=== PATIENT | female | born 1960 | race Caucasian/White ===

== ENCOUNTER 2019-02-01 16:24 | Inpatient (IN) | payer OTHER ==
[~2019-02-01] VITALS: Ht 160 cm; Wt 101.6 kg
[2019-02-01 18:23] VITALS: BP_SYST 147
[2019-02-01] MEDS ORDERED: NACL 0.9% 1,000 ML IV ONE (19:00)
[2019-02-01] MEDS ORDERED: IBUPROFEN 600 MG TABLET PO ONE (19:00)
[2019-02-01 19:17] LABS: HEMATOCRIT 42.1 % (36-48); HEMOGLOBIN 14.3 g/dL (12.0-16.0); MEAN CORPUSCULAR HEMOGLOBIN 30 pg (27-31); MEAN CORPUSCULAR HGB CONC 34 % (32-36); MEAN CORPUSCULAR VOLUME 87 fL (79.0-98.0); PLATELET COUNT (AUTO) 224 K/uL (130-430); RED BLOOD CELL COUNT(AUTO) 4.83 MIL/uL (4.2-6.2); WHITE BLOOD COUNT (AUTO) 18.1 K/uL (4.8-10.8)
[2019-02-01 19:28] LABS: CALCIUM 8.6 mg/dL (8.4-11.0); CREATININE 0.91 mg/dL (0.55-1.30); POTASSIUM 3.3 mmol/L (3.5-5.1)
[2019-02-01 19:33] LABS: ALBUMIN 3.4 g/dL (3.4-4.8); TOTAL BILIRUBIN 1.5 mg/dL (0.0-1.0)
[2019-02-01 19:43] LABS: BAND % (MANUAL) 7 % (0-6); BASOPHILS % (MANUAL) 0 % (0-2); EOSINOPHILS % (MANUAL) 0 % (0-7); LYMPHOCYTES % (MANUAL) 16 % (20-46); MONOCYTES % (MANUAL) 4 % (0-11)
[2019-02-01] MEDS ORDERED: KETOROLAC TROMETHAMINE 30 MG VIAL IVP ONE (20:30)
[2019-02-01] MEDS ORDERED: cefTRIAXone 1 GM IVPB PREMIX 50 ML IV ONE (20:30)
[2019-02-01] MEDS ORDERED: AMPICILLIN SODIUM/SULBACTAM NA 3 GM VIAL IV ONE (20:45)
[2019-02-01 21:29] LABS: BILIRUBIN,URINE NEGATIVE (NEGATIVE); BLOOD, URINE NEGATIVE (NEGATIVE); COLOR,URINE YELLOW (YELLOW); GLUCOSE,URINE NEGATIVE (NEGATIVE); KETONES,URINE 1+ (NEGATIVE); LEUKOCYTE ESTERASE ,URINE NEGATIVE (NEGATIVE); NITRITE, URINE NEGATIVE (NEGATIVE); PH,URINE 5.5 (5.0-8.0); PROTEIN URINE NEGATIVE (NEGATIVE); UROBILINOGEN,URINE 0.2 (0.2-1.0)
[2019-02-01 21:31] LABS: CLARITY/URINE SL. HAZY (CLEAR)
[2019-02-01 22:43] VITALS: BP_SYST 104
[2019-02-01] MEDS ORDERED: ONDANSETRON HCL 4 MG/2 ML VIAL IVP PRN (23:30)
[2019-02-01] MEDS ORDERED: ZOLPIDEM TARTRATE 5 MG TABLET PO PRN (23:30)
[2019-02-01] MEDS ORDERED: HYDROcodone/ACETAMIN 5-325 MG TAB (NORCO/ VICODIN) PO PRN (23:30)
[2019-02-01] MEDS ORDERED: MORPHINE 4 MG/ML INJ. SYRINGE IVP PRN (23:30)
[2019-02-01] MEDS: NACL 0.9% 1,000 ML IV SCH (23:36)
[2019-02-01] MEDS ORDERED: VANCOMYCIN HCL 1 GM/NS PREMIX 250 ML IV SCH (23:45)
[2019-02-02] MEDS ORDERED: CEFAZOLIN 2 GM IVPB PREMIX 100 ML IV ONE (00:25)
[2019-02-02] MEDS: ceFAZolin SODIUM 2 GM in D5W 100 ML IV SCH ×5 (00:26→23:05)
[2019-02-02] MEDS ORDERED: VANCOMYCIN HCL 1000 MG/VIAL IV ONE (00:26)
[2019-02-02 00:31] VITALS: BP_SYST 103
[2019-02-02 06:04] LABS: BASOPHILS # (AUTO) 0.1 K/uL (0.0-0.2); BASOPHILS % (AUTO) 0.4 % (0.0-2.0); EOSINOPHILS # (AUTO) 0.1 K/uL (0.0-0.4); EOSINOPHILS % (AUTO) 0.7 % (0.0-4.0); HEMATOCRIT 36.3 % (36-48); HEMOGLOBIN 12.3 g/dL (12.0-16.0); LYMPHOCYTES % (AUTO) 12.9 % (20.5-51.5); MEAN CORPUSCULAR HEMOGLOBIN 30 pg (27-31); MEAN CORPUSCULAR HGB CONC 34 % (32-36); MEAN CORPUSCULAR VOLUME 88 fL (79.0-98.0); MONOCYTES # (AUTO) 1.2 K/uL (0.0-1.0); NEUTROPHILS # (AUTO) 11.9 K/uL (1.8-7.7); PLATELET COUNT (AUTO) 171 K/uL (130-430); RED BLOOD CELL COUNT(AUTO) 4.15 MIL/uL (4.2-6.2); RED CELL DISTRIBUTION WIDTH 12.9 % (9.0-15.0); WHITE BLOOD COUNT (AUTO) 15.3 K/uL (4.8-10.8)
[2019-02-02 06:56] LABS: ALBUMIN 2.8 g/dL (3.4-4.8); CALCIUM 7.8 mg/dL (8.4-11.0); CREATININE 0.86 mg/dL (0.55-1.30); POTASSIUM 3.8 mmol/L (3.5-5.1); TOTAL BILIRUBIN 0.8 mg/dL (0.0-1.0)
[2019-02-02 08:05] VITALS: BP_SYST 106
[2019-02-02 09:05] LABS: ERYTHROCYTE SEDIMENTATION RATE 52 MM/HR (0-20)
[2019-02-02] MEDS: VANCOMYCIN HCL 1,500 MG in NS 250 ML IV SCH ×2 (09:51→20:30)
[2019-02-02] MEDS ORDERED: CLINDAMYCIN 600 MG in D5W 50 ML IV ONE (10:30)
[2019-02-02 13:46] VITALS: BP_SYST 122
[2019-02-02 17:04] VITALS: BP_SYST 119
[2019-02-02] MEDS: ACETAMINOPHEN 325 MG TABLET PO PRN (17:13)
[2019-02-02] MEDS: CLINDAMYCIN 600 MG in D5W 50 ML IV SCH (19:26)
[2019-02-02 20:00] VITALS: BP_SYST 125
[2019-02-02] MEDS: NACL 0.9% 1,000 ML IV SCH (20:49)
[2019-02-02] MEDS: KETOROLAC TROMETHAMINE 15 MG VIAL IVP PRN (20:50)
[2019-02-03] MEDS ORDERED: CEFAZOLIN 2 GM IVPB PREMIX 100 ML IV ONE
[2019-02-03 00:15] VITALS: BP_SYST 108
[2019-02-03] MEDS: CLINDAMYCIN 600 MG in D5W 50 ML IV SCH ×4 (00:34→19:16)
[2019-02-03] MEDS: KETOROLAC TROMETHAMINE 15 MG VIAL IVP PRN ×3 (03:34→20:40)
[2019-02-03] MEDS: ceFAZolin SODIUM 2 GM in D5W 100 ML IV SCH (06:31)
[2019-02-03 08:00] VITALS: BP_SYST 108
[2019-02-03] MEDS: VANCOMYCIN HCL 1,500 MG in NS 250 ML IV SCH ×2 (08:27→20:41)
[2019-02-03 12:00] VITALS: BP_SYST 119
[2019-02-03] MEDS: AMPICILLIN SODIUM 2 GM in NS 100 ML IV SCH ×2 (12:15→18:10)
[2019-02-03 13:35] LABS: BASOPHILS % (AUTO) 0.3 % (0.0-2.0); EOSINOPHILS # (AUTO) 0.3 K/uL (0.0-0.4); EOSINOPHILS % (AUTO) 2.6 % (0.0-4.0); HEMATOCRIT 37.3 % (36-48); HEMOGLOBIN 12.5 g/dL (12.0-16.0); LYMPHOCYTES % (AUTO) 14.8 % (20.5-51.5); MEAN CORPUSCULAR HEMOGLOBIN 30 pg (27-31); MEAN CORPUSCULAR HGB CONC 34 % (32-36); MEAN CORPUSCULAR VOLUME 88 fL (79.0-98.0); MONOCYTES # (AUTO) 0.6 K/uL (0.0-1.0); MONOCYTES % (AUTO) 4.7 % (1.7-9.3); NEUTROPHILS # (AUTO) 10.4 K/uL (1.8-7.7); NEUTROPHILS % (AUTO) 77.6 % (40.0-70.0); PLATELET COUNT (AUTO) 188 K/uL (130-430); RED BLOOD CELL COUNT(AUTO) 4.24 MIL/uL (4.2-6.2); WHITE BLOOD COUNT (AUTO) 13.4 K/uL (4.8-10.8)
[2019-02-03 13:49] LABS: CALCIUM 8.1 mg/dL (8.4-11.0); CREATININE 0.73 mg/dL (0.55-1.30); POTASSIUM 3.7 mmol/L (3.5-5.1)
[2019-02-03 14:23] LABS: ERYTHROCYTE SEDIMENTATION RATE 71 MM/HR (0-20)
[2019-02-03] MEDS: NACL 0.9% 1,000 ML IV SCH (14:52)
[2019-02-03 16:00] VITALS: BP_SYST 109
[2019-02-04 07:38] LABS: BASOPHILS # (AUTO) 0.1 K/uL (0.0-0.2); BASOPHILS % (AUTO) 0.6 % (0.0-2.0); EOSINOPHILS # (AUTO) 0.5 K/uL (0.0-0.4); EOSINOPHILS % (AUTO) 4.3 % (0.0-4.0); HEMATOCRIT 36.3 % (36-48); HEMOGLOBIN 12.5 g/dL (12.0-16.0); LYMPHOCYTES # (AUTO) 2.1 K/uL (1.0-5.5); LYMPHOCYTES % (AUTO) 18.8 % (20.5-51.5); MEAN CORPUSCULAR HEMOGLOBIN 30 pg (27-31); MEAN CORPUSCULAR HGB CONC 34 % (32-36); MONOCYTES # (AUTO) 0.7 K/uL (0.0-1.0); MONOCYTES % (AUTO) 6.4 % (1.7-9.3); NEUTROPHILS # (AUTO) 7.6 K/uL (1.8-7.7); NEUTROPHILS % (AUTO) 69.9 % (40.0-70.0); PLATELET COUNT (AUTO) 229 K/uL (130-430); RED BLOOD CELL COUNT(AUTO) 4.21 MIL/uL (4.2-6.2); RED CELL DISTRIBUTION WIDTH 12.8 % (9.0-15.0); WHITE BLOOD COUNT (AUTO) 10.9 K/uL (4.8-10.8)
[2019-02-04 07:47] LABS: MEAN CORPUSCULAR VOLUME 86 fL (79.0-98.0)
[2019-02-04 07:59] LABS: ALBUMIN 2.7 g/dL (3.4-4.8); CALCIUM 8.2 mg/dL (8.4-11.0); CREATININE 0.7 mg/dL (0.55-1.30); POTASSIUM 3.3 mmol/L (3.5-5.1); TOTAL BILIRUBIN 0.4 mg/dL (0.0-1.0)
[2019-02-04 08:35] VITALS: BP_SYST 113
[2019-02-04] MEDS: KETOROLAC TROMETHAMINE 15 MG VIAL IVP PRN ×2 (09:31→22:06)
[2019-02-04] MEDS: NACL 0.9% 1,000 ML IV SCH (09:35)
[2019-02-04] MEDS: VANCOMYCIN HCL 1,500 MG in NS 250 ML IV SCH ×2 (09:51→22:04)
[2019-02-04 12:30] VITALS: BP_SYST 110
[2019-02-04] MEDS: CLINDAMYCIN 600 MG in D5W 50 ML IV SCH ×2 (13:18→18:08)
[2019-02-04] MEDS: AMPICILLIN SODIUM 2 GM in NS 100 ML IV SCH ×2 (13:20→18:49)
[2019-02-04] MEDS ORDERED: POTASSIUM CHLORIDE 20 MEQ TAB.PRT.SR PO ONE (15:15)
[2019-02-04 16:20] VITALS: BP_SYST 112
[2019-02-04] MEDS: metroNIDAZOLE 500 MG TABLET PO SCH (21:53)
[2019-02-04] MEDS: LACTOBACILLUS RHAMNOSUS GG 1 CAP CAPSULE PO SCH (21:54)
[2019-02-05 00:18] VITALS: BP_SYST 121
[2019-02-05] MEDS: AMPICILLIN SODIUM 2 GM in NS 100 ML IV SCH ×3 (00:49→12:28)
[2019-02-05] MEDS: CLINDAMYCIN 600 MG in D5W 50 ML IV SCH ×3 (01:13→11:47)
[2019-02-05] MEDS: metroNIDAZOLE 500 MG TABLET PO SCH (06:14)
[2019-02-05 07:38] VITALS: BP_SYST 130
[2019-02-05 08:00] VITALS: BP_SYST 130
[2019-02-05] MEDS: LACTOBACILLUS RHAMNOSUS GG 1 CAP CAPSULE PO SCH (08:29)
[2019-02-05] MEDS: VANCOMYCIN HCL 1,500 MG in NS 250 ML IV SCH (08:32)
[2019-02-05] MEDS: ACETAMINOPHEN 325 MG TABLET PO PRN (08:35)
[2019-02-05] MEDS: NACL 0.9% 1,000 ML IV SCH (08:36)
[2019-02-05 12:09] VITALS: BP_SYST 132
[2019-02-05 12:16] VITALS: BP_SYST 132
== END 2019-02-05 13:49 | disposition home or self-care (01) | DRG 872 ==
LOC: SED 16:24 → SMU 20:39
PROVIDERS: ADMIT Internal Medicine; ATTEND Internal Medicine
DX: A41.9 Sepsis, unspecified organism (principal); N61.0 Mastitis without abscess; E66.01 Morbid (severe) obesity due to excess calories; Z88.1 Allergy status to other antibiotic agents; Z68.39 Body mass index [BMI] 39.0-39.9, adult; Z79.899 Other long term (current) drug therapy; Z88.2 Allergy status to sulfonamides
CPT/HCPCS: 36415; 71046-TC; 71550-TC; 76642; 80048; 80053; 80202-TC; 81003; 83605; 85007; 85025; 85027; 85651-TC; 87040-TC; 87081; 87086; 93005; 96361; 96365; 96375; 99285; J0290; J0690; J0696; J1885; J3370; J3490; J7030; J7050; J7060